=== PATIENT | female | born 1935 | race Caucasian/White ===

== ENCOUNTER 2023-12-01 11:43 | Observation (INO) | payer MEDICARE ==
[2023-12-01 14:19] VITALS: BMI 17.4
[2023-12-01] MEDS ORDERED: traMADol HCl 50 MG TAB PO PRN (15:55)
[2023-12-01] MEDS ORDERED: HYDROcodone/Acetaminophen 5/325 mg Tablet PO PRN (15:58)
[2023-12-01] MEDS ORDERED: Bisacodyl 10 MG SUPP PR PRN (17:15)
[2023-12-01] MEDS: HYDROcodone/Acetaminophen 5/325 mg Tablet PO PRN (20:41)
[2023-12-02] MEDS: Senokot S 8.6-50 MG TAB PO PRN (08:27)
[2023-12-02] MEDS: Losartan 25 MG TAB PO SCH (08:27)
[2023-12-02] MEDS: Ascorbic Acid 500 mg Chewable Tablet PO SCH (08:28)
[2023-12-02] MEDS ORDERED: Aspirin 325 mg Enteric Coated Tablet PO SCH (09:00)
[2023-12-02] MEDS ORDERED: Losartan 25 MG TAB PO SCH (09:00)
[2023-12-02 13:17] VITALS: BMI 17.4
[2023-12-03] MEDS: Acetaminophen 325 MG TAB PO PRN (05:44)
[2023-12-03] MEDS: Polyethylene Glycol 3350 17 GM Packet PO SCH (09:04)
[2023-12-03] MEDS: Bisacodyl 5 MG TAB PO PRN (12:24)
[2023-12-04 06:05] VITALS: BP 155/79; TEMP 98.3
[2023-12-04] MEDS ORDERED: clonazePAM 0.5 MG TAB PO PRN (08:20)
[2023-12-04] MEDS: Calcium Carbonate 600 MG + Vit D TAB PO SCH (09:31)
[2023-12-04] MEDS: traMADol HCl 50 MG TAB PO SCH (12:29)
== END 2023-12-04 11:36 | disposition swing bed (61) ==
LOC: BURMED 13:22
PROVIDERS: ADMIT Family Medicine; ATTEND Nurse Practitioner
DX: S22.051A Stable burst fracture of T5-T6 vertebra, initial encounter for closed fracture (principal); S22.081A Stable burst fracture of T11-T12 vertebra, initial encounter for closed fracture; I10 Essential (primary) hypertension; E87.1 Hypo-osmolality and hyponatremia; K59.00 Constipation, unspecified; J90 Pleural effusion, not elsewhere classified; F41.9 Anxiety disorder, unspecified; Z90.89 Acquired absence of other organs; Z98.890 Other specified postprocedural states; Z88.5 Allergy status to narcotic agent; Z79.899 Other long term (current) drug therapy; W19.XXXA Unspecified fall, initial encounter
CPT/HCPCS: 74018; G0378

== ENCOUNTER 2023-12-04 10:56 | Inpatient (IN) | payer MEDICARE ==
[2023-12-04] MEDS ORDERED: HYDROcodone/Acetaminophen 5/325 mg Tablet PO PRN (14:15)
[2023-12-04] MEDS ORDERED: Bisacodyl 10 MG SUPP PR PRN (14:15)
[2023-12-04] MEDS ORDERED: Acetaminophen 325 MG TAB PO PRN (14:15)
[2023-12-04 14:32] VITALS: BMI 17.4
[2023-12-04] MEDS: traMADol HCl 50 MG TAB PO SCH (15:15)
[2023-12-04] MEDS: HYDROcodone/Acetaminophen 5/325 mg Tablet PO PRN (18:01)
[2023-12-04] MEDS: Fleet Saline Enema 133 ML BOT PR SCH (19:08)
[2023-12-04] MEDS: hydrALAZINE 25 MG TAB PO SCH ×2 (19:10→21:15)
[2023-12-05 09:02] LABS: Anion Gap 15 mmol/L (10-20); BUN (Urea Nitrogen) 14 mg/dL (9.8-20.1); Calc. Creatinine Clearance 52 mL/min (70-130); Calcium 9.2 mg/dL (7.8-10.44); Carbon Dioxide 27 mmol/L (23-31); Chloride 86 mmol/L (98-107); Estimated GFR 88; Glucose 104 mg/dL (83-110); Sodium 124 mmol/L (136-145)
[2023-12-05] MEDS: Polyethylene Glycol 3350 17 GM Packet PO SCH (10:19)
[2023-12-05] MEDS: Ascorbic Acid 500 mg Chewable Tablet PO SCH (10:19)
[2023-12-05] MEDS: Aspirin 325 mg Enteric Coated Tablet PO SCH (10:20)
[2023-12-05] MEDS: Calcium Carbonate 600 MG + Vit D TAB PO SCH (10:20)
[2023-12-05] MEDS: Losartan 25 MG TAB PO SCH (10:23)
[2023-12-05] MEDS: Senokot S 8.6-50 MG TAB PO PRN (10:23)
[2023-12-05] MEDS: Bisacodyl 5 MG TAB PO PRN (15:19)
[2023-12-06] MEDS: Fleet Saline Enema 133 ML BOT PR SCH (08:56)
[2023-12-06] MEDS: oxyCODONE 5 MG TAB PO SCH (08:57)
[2023-12-06 11:30] VITALS: BMI 17.4
[2023-12-06] MEDS: Acetaminophen 500 MG TAB PO SCH (12:54)
[2023-12-06] MEDS: Fleet Saline Enema 133 ML BOT PR PRN (15:25)
[2023-12-07 06:31] LABS: Sodium 125 mmol/L (136-145)
[2023-12-07] MEDS: oxyCODONE 5 MG TAB PO SCH (13:02)
[2023-12-07] MEDS: clonazePAM 0.5 MG TAB PO PRN (19:36)
[2023-12-08] MEDS: oxyCODONE 5 MG TAB PO SCH (10:06)
[2023-12-09] MEDS: oxyCODONE 5 MG TAB PO SCH (12:52)
[2023-12-10 05:24] LABS: Potassium 4.2 mmol/L (3.5-5.1); Sodium 127 mmol/L (136-145)
[2023-12-12] MEDS: clonazePAM 0.5 MG TAB PO PRN (13:50)
[2023-12-16] MEDS ORDERED: Acetaminophen 500 MG TAB ONE (05:50)
[2023-12-16] MEDS ORDERED: oxyCODONE 5 MG TAB ONE (05:50)
[2023-12-19 06:29] VITALS: TEMP 98.6
[2023-12-19 08:07] VITALS: BP 168/70
== END 2023-12-19 09:40 | disposition home health service (06) | DRG 560 ==
LOC: BURMED 11:36
PROVIDERS: ADMIT Family Medicine; ATTEND Family Medicine
PROC: 2W35X3Z Immobilization of Back using Brace (ICD-10-PCS; principal; 2023-12-12)
DX: S22.051D Stable burst fracture of T5-T6 vertebra, subsequent encounter for fracture with routine healing (principal); E87.1 Hypo-osmolality and hyponatremia; J90 Pleural effusion, not elsewhere classified; S22.081D Stable burst fracture of T11-T12 vertebra, subsequent encounter for fracture with routine healing; I10 Essential (primary) hypertension; K59.00 Constipation, unspecified; F41.9 Anxiety disorder, unspecified; G89.29 Other chronic pain; Z88.5 Allergy status to narcotic agent; Z79.899 Other long term (current) drug therapy; Z90.89 Acquired absence of other organs; Z98.890 Other specified postprocedural states; W19.XXXD Unspecified fall, subsequent encounter
CPT/HCPCS: 36415; 74018; 80048; 84132; 84295; G0378

== ENCOUNTER 2024-12-27 18:26 | Emergency (ER) | payer MEDICARE ==
[~2024-12-27 18:26] MED LIST: Iopamidol 370 76% 100 ML VIAL ONE
[2024-12-27 19:17] LABS: #Basophils 0.1 thou/uL (0.0-0.2); #Eosinophils 0.0 thou/uL (0.0-0.7); #Lymphocytes 0.6 thou/uL (1.20-3.40); #Monocytes 0.9 thou/uL (0.11-0.59); #Neutrophils 18.1 thou/uL (1.40-6.50); %Basophils 0.4 % (0.0-1.0); %Eosinophils 0.2 % (0.0-10.0); %Lymphocytes 2.9 % (21.0-51.0); %Monocytes 4.6 % (0.0-10.0); %Neutrophils 91.9 % (42.0-75.0); Hematocrit 31.2 % (36.0-47.0); Hemoglobin 10.6 g/dL (12.0-16.0); Mean Corpuscular Hemoglobin 30.8 pg (27.0-31.0); Mean Corpuscular Volume 90.3 fl (78.0-98.0); Platelet Count 310 10x3/uL (130-400); Red Blood Cell (RBC) Count 3.45 mill/uL (4.20-5.40); White Blood Cell (WBC) Count 19.7 10x3/uL (4.8-10.8)
[2024-12-27 19:25] LABS: INR-International Normal Ratio 1.0; Prothrombin Time 13.8 sec (12.0-14.7)
[2024-12-27 19:26] LABS: PTT 25.5 sec (22.9-36.1)
[2024-12-27 19:35] LABS: ALT (SGPT) 35 U/L (Less than 34); AST (SGOT) 35 U/L (11-34); Albumin 2.5 g/dL (3.1-4.5); Alkaline Phosphatase 198 U/L (40-110); Anion Gap 18 mmol/L (10-20); BUN (Urea Nitrogen) 29 mg/dL (9.8-20.1); Bilirubin, Total 0.5 mg/dL (0.3-1.2); Calc. Creatinine Clearance 0 mL/min (70-130); Calcium 9.1 mg/dL (7.8-10.44); Carbon Dioxide 24 mmol/L (23-31); Chloride 97 mmol/L (98-107); Globulin 4.3 g/dL (2.4-3.5); Glucose 119 mg/dL (83-110); Magnesium 2.1 mg/dL (1.6-2.6); Potassium 4.7 mmol/L (3.5-5.1); Sodium 134 mmol/L (136-145); Troponin I 0.038 ng/mL (< 0.028)
[2024-12-27] MEDS ORDERED: Cefepime 2 GM VIAL ONE (19:48)
[2024-12-27 22:38] LABS: Glucose, Urine (Dipstick) Negative (Negative); Leukocyte Small (Negative); Protein, Urine (Dipstick) 100 mg/dL (Neg-Trace); Specific Gravity, Urine 1.010 (1.005-1.030)
[2024-12-27 22:48] LABS: CAUTI Indications for Culture Dysuria,urgency,freq; RBC/HPF 0-3 HPF (0-3)
[2024-12-27 22:49] LABS: Bacteria/HPF 3+ HPF (None Seen)
[2024-12-27 22:51] LABS: Urine Culture Reflex No No
== END 2024-12-27 23:38 | disposition short-term general hospital (02) ==
LOC: BURERS 18:26
DX: A41.9 Sepsis, unspecified organism (principal); J18.9 Pneumonia, unspecified organism; N39.0 Urinary tract infection, site not specified; R00.0 Tachycardia, unspecified; I10 Essential (primary) hypertension; Z79.82 Long term (current) use of aspirin; Z79.899 Other long term (current) drug therapy
CPT/HCPCS: 36415; 70450; 71275; 74177; 80053; 81001; 83605; 83735; 83880; 84484; 85025; 85610; 85730; 87040; 87077; 87149; 87186; 93005; 96365; J0692; Q9967